=== PATIENT | male | born 1935 | race Caucasian/White ===

== ENCOUNTER 2017-02-21 16:14 | Inpatient (IN) | payer MEDICARE, OTHER ==
[~2017-02-21] VITALS: Ht 172.7 cm; Wt 68.5 kg
[2017-02-21] MEDS ORDERED: IPRATROPIUM NEB FS 0.5 MG/2.5 ML AMPUL.NEB NEB ONE (16:30)
[2017-02-21] MEDS ORDERED: IV NS 0.9% 500 ML BAG IV ONE (16:30)
[2017-02-21] MEDS ORDERED: ALBUTEROL FS 2.5 MG/3 ML VIAL.NEB NEB ONE (16:30)
--- NOTE | 2017-02-21 16:30 | NUR ---
RT AT FOR BIPAP.
--- NOTE | 2017-02-21 16:33 | NUR ---
[id number] FROM [facility]: SOB, COPD EXACERBATION. PATIENT ON O2 VIA NON REBREATHER SATING 89%. PATIENT IN MILD DISTRESS. AFBERILE AT THIS TIME. CONNECTED TO TELE MONITOR. RT AT BEDSIDE
[2017-02-21 16:34] LABS: BASOPHILS % (AUTO) 0.6 % (0.0-2.0); EOSINOPHILS # (AUTO) 0.1 /CMM (0.0-0.7); EOSINOPHILS % (AUTO) 2.9 % (0.0-6.0); HEMATOCRIT 31 % (39-51); HEMOGLOBIN 10.6 g/dL (13.5-17.5); LYMPHOCYTES # (AUTO) 0.7 /CMM (0.8-4.8); LYMPHOCYTES % (AUTO) 26.4 % (20.0-44.0); MEAN CORPUSCULAR HEMOGLOBIN 30 PG (26.0-33.0); MEAN CORPUSCULAR HGB CONC 34 g/dl (31.0-36.0); MEAN CORPUSCULAR VOLUME 89 fL (80-96); MONOCYTES # (AUTO) 0.1 /CMM (0.1-1.30); MONOCYTES % (AUTO) 5.2 % (2.0-12.0); NEUTROPHILS # (AUTO) 1.9 /CMM (1.8-8.9); NEUTROPHILS % (AUTO) 64.9 % (43.0-81.0); PLATELET COUNT (AUTO) 243 /CMM (150-450); RDW COEFFICIENT OF VARIATION 19.5 (11.5-15.0); RED BLOOD CELL COUNT(AUTO) 3.55 MIL/uL (4.5-6.0); WHITE BLOOD COUNT (AUTO) 2.8 K/uL (4.3-11.0)
[2017-02-21 16:44] LABS: CALCIUM, SERUM 8.7 mg/dL (8.5-10.1); CARBON DIOXIDE 27 mmol/L (21-32); CHLORIDE 102 mmol/L (98-107); CREATININE 1.1 mg/dL (0.6-1.3); GLUCOSE 140 mg/dL (74-106); POTASSIUM 3.5 mmol/L (3.5-5.1); SODIUM SERUM 136 mmol/L (136-145); UREA NITROGEN, BLOOD 23 mg/dL (7-18)
[2017-02-21 16:48] LABS: INR 1.28 (0.87-1.13); PROTHROMBIN TIME 13.3 SECS (9.5-12.7)
[2017-02-21 16:50] LABS: ALANINE AMINOTRANSFERASE 23 U/L (12-78); ALBUMIN 2.1 g/dL (3.4-5.0); ALKALINE PHOSPHATASE 108 U/L (46-116); ASPARTATE AMINOTRANSFERASE 19 U/L (15-37); BILIRUBIN,DIRECT 0.8 mg/dL (0.0-0.2); BILIRUBIN,TOTAL 2.3 mg/dL (0.2-1.0); TOTAL PROTEIN, SERUM 6.2 g/dL (6.4-8.2)
--- NOTE | 2017-02-21 16:51 | NUR ---
PT REFUSED BIPAP. PT UNABLE TO TOLERATE BIPAP MASK. JOSE RAUL AND DR STUBBS NOTIFIED Addendum: 02/21/17 at 1744 by ROBI MIDDLETON RT Amended: Links added.
[2017-02-21 16:52] LABS: TROPONIN I 0.056 ng/mL (0.00-0.056)
--- NOTE | 2017-02-21 16:57 | NUR ---
PATIENT STRONGLY REFUSING BIPAP. RISKS AND BENEFITS EXPLAINED BY RN AND RT, PT STRONGLY REFUSED. MD SYED MADE AWARE. WILL CONT TO OFFER. WILL MONITOR PATIENT
[2017-02-21] MEDS ORDERED: ALBUTEROL FS 2.5 MG/3 ML VIAL.NEB ONE (16:58)
[2017-02-21] MEDS ORDERED: IPRATROPIUM NEB FS 0.5 MG/2.5 ML AMPUL.NEB ONE (16:58)
--- NOTE | 2017-02-21 17:42 | NUR ---
PANEL ON-CALL PAGED
[2017-02-21] MEDS ORDERED: FLUT1DIS3 IH (17:50)
[2017-02-21] MEDS ORDERED: CHOL100062 PO (17:50)
[2017-02-21] MEDS ORDERED: ASPI-1169 PO (17:50)
[2017-02-21] MEDS ORDERED: ALBU8.5H8 INH (17:50)
[2017-02-21] MEDS ORDERED: CLOP75TA15 PO (17:50)
[2017-02-21] MEDS ORDERED: DOCU100T2 PO (17:51)
[2017-02-21] MEDS ORDERED: LEVA1.257 IH (17:51)
[2017-02-21] MEDS ORDERED: MUPI15CR NAS (17:51)
[2017-02-21] MEDS ORDERED: FURO20TA4 PO (17:51)
[2017-02-21] MEDS ORDERED: MONT10TA22 PO (17:51)
[2017-02-21] MEDS ORDERED: MIRT15TA7 PO (17:51)
[2017-02-21] MEDS ORDERED: MORPHINE SULFATE INJ 2 MG/ML DISP.SYRIN IV ONE (18:00)
[2017-02-21] MEDS ORDERED: TRAM50TA2 PO (18:03)
[2017-02-21] MEDS ORDERED: SENN-167 PO (18:03)
[2017-02-21] MEDS ORDERED: OMEP20CA10 PO (18:03)
[2017-02-21] MEDS ORDERED: SODI45SP10 NS (18:03)
[2017-02-21] MEDS ORDERED: PRED20TA PO (18:03)
[2017-02-21] MEDS ORDERED: NITR0.4T48 SL (18:03)
[2017-02-21] MEDS ORDERED: THIA100T13 PO (18:03)
[2017-02-21] MEDS ORDERED: AMIN887L PO (18:03)
[2017-02-21] MEDS ORDERED: SPIR100T3 PO (18:03)
[2017-02-21] MEDS ORDERED: MORPHINE SULFATE INJ 2 MG/ML DISP.SYRIN ONE (18:10)
--- NOTE | 2017-02-21 18:18 | NUR ---
RECEIVED REPORT FROM [facility]
--- NOTE | 2017-02-21 18:26 | NUR ---
PATIENT TRANSPORTED TO [facility]. REFUSED BIPAP. AWARE.
--- NOTE | 2017-02-21 18:50 | NUR ---
PATIENT ARRIVED TO UNIT VIA A GURNEY AT 1835 AND PLACED IN ROOM 202. PATIENT IS ON MASK 15L AND SATURATING AT 92%
--- NOTE | 2017-02-21 18:58 | NUR ---
PATIENT REFUSING MASK AND DESATURATING AT THE LOW 80
[2017-02-21 19:00] VITALS: BP 104/57
[2017-02-21 20:00] VITALS: BP 115/54
--- NOTE | 2017-02-21 20:20 | NUR ---
MS RN NOTES PT TO BE STARTED ON MORPHINE DRIP AT 4MG/HR PER LAURA STRANGE. FAMILY IS REQUESTING IF IT'S POSSIBLE TO GIVE PAIN MEDS TO PT WHILE COMPOSITION ROLL MAKER AND CUTTER UNAVAILABLE. NOTIFIED FLAQUITA BILLY NUTRITIONAL YEAST SUPERVISOR FOR [facility]. WITH NEW ORDERS TO GIVE MORPHINE 4MG IV ONCE NOW. ORDERS NOTED AND CARRIED OUT. WILL CONTINUE TO MONITOR.
[2017-02-21] MEDS ORDERED: MORPHINE SULFATE INJ 4 MG/ML DISP.SYRIN ONE (20:23)
[2017-02-21] MEDS ORDERED: LORAZEPAM INJ 20 MG in IV NS 0.9% 90 ML IV PRN (20:30)
[2017-02-21] MEDS ORDERED: MORPHINE SULFATE PF DRIP 250 MG in IV D5W 240 ML IV PRN (20:30)
[2017-02-21] MEDS ORDERED: MORPHINE SULFATE INJ 4 MG/ML DISP.SYRIN IV ONE (20:30)
[2017-02-21] MEDS: MORPHINE SULFATE 30 MG in IV NS 0.9% 28 ML, PCA TOTAL VOLUME 1 BAG IV PRN ×3 (21:21)
--- NOTE | 2017-02-22 04:00 | NUR ---
MS RN NOTES PT ON MORPHINE DRIP INFUSING AT 4MG/HR. BAG COMPLETED. NOTIFIED FLAQUITA SUPERVISOR VARNISH PRESSURISED CONTAINER FILLER FOR [facility]. WITH NEW ORDERS TO GIVE MORPHINE 4MG IV Q1H X 3 DOSES WHILE MANAGER MUTUAL FUND UNAVAILABLE. ORDERS NOTED AND CARRIED OUT. WILL CONTINUE TO MONITOR.
[2017-02-22] MEDS ORDERED: MORPHINE SULFATE INJ 4 MG/ML DISP.SYRIN ONE ×3 (04:17→06:33)
[2017-02-22] MEDS: MORPHINE SULFATE INJ 4 MG/ML DISP.SYRIN IV SCH ×3 (04:25→06:35)
--- NOTE | 2017-02-22 06:58 | NUR ---
MS RN NOTES PT LETHARGIC. ON COMFORT MEASURES. WITH ATIVAN DRIP INFUSING WELL. NOTIFIED PHARMACIST RE MORPHINE DRIP. AM CARE DONE. MONITORED ACCORDINGLY. CALL LIGHT WITHIN REACH. BED IN LOWEST POSITION. SR UP X 2 FOR SAFETY. WILL ENDORSE TO NEXT SHIFT.
[2017-02-22 08:00] VITALS: BP 75/44
--- NOTE | 2017-02-22 08:00 | NUR ---
MS RN OPENING NOTE PATIENT LETHARGIC. ON MORPHINE DRIP AT THIS TIME AT 4 MG/HR. COMFORT MEASURES IN PLACE. CALL LIGHT WITHIN REACH. BED IN LOWEST POSITION FOR SAFETY. WILL CONTINUE TO MONITOR
[2017-02-22] MEDS ORDERED: KEY,NONCONTROL,TO KEEP IN PYXI 1 EA MC ONE (08:23)
[2017-02-22] MEDS: MORPHINE SULFATE 30 MG in IV NS 0.9% 28 ML, PCA TOTAL VOLUME 1 BAG IV PRN ×12 (08:38→18:10)
--- NOTE | 2017-02-22 11:00 | NUR ---
MS RN NOTE MADE A CALL TO [place] FOR GAS STATION MANAGER TO COME AND DO ANOINTING OF THE SICK. PER FAMILY REQUEST
--- NOTE | 2017-02-22 12:01 | NUR ---
MS RN NOTE PER MD TO INCREASE MORPHINE DRIP TO 6 MG/HR. ORDERS NOTED AND CARRIED OUT.
--- NOTE | 2017-02-22 18:55 | NUR ---
MS RN CLOSING NOTE PATIENT IS LETHARGIC. NON-VERBAL. DOESNT RESPOND TO COMMANDS OR QUESTIONS. COMFORT MEASURES AT THIS TIME. CURRENTLY ON MORPHINE DRIP AT 6MG/HR. BED IN LOWEST POSITION AT THIS TIME. SIDE RAILS UP AT THIS TIME. WILL ENDORSE TO [employer] NURSE FOR SUHAS
--- NOTE | 2017-02-22 20:37 | NUR ---
MS RN NOTES BC IS GRAM NEGATIVE RODS. PT ON COMFORT MEASURES ONLY. WILL CONTINUE TO MONITOR.
--- NOTE | 2017-02-22 20:59 | NUR ---
MS RN NOTES NO SIGNIFICANT CHANGES NOTED. REPORT GIVEN TO AMENA BLUNT FOR CONTINUITY OF CARE.
--- NOTE | 2017-02-22 21:00 | NUR ---
RN OPEN NOTES RECEIVED PATIENT LAYING IN BED. LETHARGIC, NON-VERBAL, NO RESPONSE TO QUESTIONS OR COMMANDS. NO SIGNS OF DISTRESS OR DISCOMFORT. BREATHING EVEN AND UNLABORED. ON 15LPM O2 VIA MASK. PATIENT CURRENTLY ON COMFORT CARE MEASURES. IV ACCESS IN RAC WITH MORPHINE INFUSING AT 6MG/HR, PATENT AND INTACT, NO SIGNS OF REDNESS OR INFILTRATION. BED IN LOW LOCKED POSITION. WILL CONTINUE TO MONITOR.
[2017-02-23] MEDS ORDERED: KEY,NONCONTROL,TO KEEP IN PYXI 1 EA MC ONE (00:37)
[2017-02-23] MEDS: MORPHINE SULFATE 30 MG in IV NS 0.9% 28 ML, PCA TOTAL VOLUME 1 BAG IV PRN ×6 (00:53→05:53)
--- NOTE | 2017-02-23 05:53 | NUR ---
RN NOTES PATIENT STILL LETHARGIC, NON VERBAL. INCREASED MORPHINE DRIP TO 7MG/HR PER PROTOCOL, PATIENTS HAS INCREASED RR OF10, COSIGNED WITH ANOTHER RN. BED IN LOW LOCKED POSITION. CALL LIGHT WITHIN REACH. WILL CONTINUE TO MONITOR.
--- NOTE | 2017-02-23 07:03 | NUR ---
RN CLOSING NOTES PATIENT LAYING IN BED. LETHARGIC, NON-VERBAL, NO RESPONSE TO QUESTIONS OR COMMANDS. NO SIGNS OF DISTRESS OR DISCOMFORT. BREATHING EVEN AND UNLABORED. ON 15LPM O2 VIA MASK. PATIENT CURRENTLY ON COMFORT CARE MEASURES. IV ACCESS IN RAC WITH MORPHINE INFUSING AT 7MG/HR, PATENT AND INTACT, NO SIGNS OF REDNESS OR INFILTRATION. NO SIGNIFICANT CHANGES THROUGH THE NIGHT. ALL NEEDS MET. BED IN LOW LOCKED POSITION. WILL ENDORSE TO AM SHIFT FOR SUHAS.
--- NOTE | 2017-02-23 07:05 | NUR ---
MS RN OPENING NOTE PATIENT IS LETHARGIC. RESPIRATIONS AT 13. MORPHINE DRIP AT 7 MG/HR. COMFORT MEASURES ONLY. BED IN LOWEST POSITION FOR SAFETY. WILL CONTINUE TO MONITOR
--- NOTE | 2017-02-23 07:30 | NUR ---
MS RN NOTE PATIENT AT 729. CONFIRMED WITH JOSE RAUL STRANGE. INFORMED DR. STRANGE ABOUT PATIENT'S . [employer] CALLED AND INFORMED ABOUT PATIENT'S , CERTIFIED SHORTHAND REPORTER INFORMED AND FAMILY INFORMED ABOUT PATIENTS . ALL POST MORTEM CARE DONE. AWAITING FOR MORTUARY TO BED BUG EXTERMINATOR PATIENT.
== END 2017-02-23 07:30 | disposition expired | DRG 393 ==
LOC: ER 16:15 → MEDSG2 18:32
PROVIDERS: ADMIT Nurse Practitioner Acute Care; ATTEND Nurse Practitioner Acute Care
DX: K63.1 Perforation of intestine (nontraumatic) (principal); N17.0 Acute kidney failure with tubular necrosis; I50.32 Chronic diastolic (congestive) heart failure; I11.0 Hypertensive heart disease with heart failure; J44.9 Chronic obstructive pulmonary disease, unspecified; K21.9 Gastro-esophageal reflux disease without esophagitis; Z51.5 Encounter for palliative care; Z66 Do not resuscitate; Z79.899 Other long term (current) drug therapy; M62.81 Muscle weakness (generalized)
CPT/HCPCS: 36415; 71010-TC; 80048-TC; 80076-TC; 83605-TC; 84484-TC; 85025-TC; 85730-TC; 87040-TC; 87081-TC; A4216; A4606; J2060; J2270; J2274; J7030; J7040; J7060; Z7610